=== PATIENT | male | born 1950 | race African-American/Black ===

== ENCOUNTER → 2017-05-28 | Outpatient (CLI) | payer OTHER, BC ==
[~2017-05-28] MED LIST: ACTOS 45 MG45 M1 PO; ALLOPURINOL 30300 M1 PO; ASPIRIN EC81 M1 PO; CARVEDILOL25 MG PO; CIPROFLOXACIN500 M1 PO; GLIPIZIDE ER10 MG PO; GLUCOPHAGE1000 MG PO; JANUVIA100 MG PO; LANSOPRAZOLE30 MG PO; LISINOPRIL20 MG PO; PIOGLITAZONE15 MG PO; SIMVASTATIN80 MG PO
--- NOTE | ~2017-05-28 | 2DMMODE ---
[facility] [place] [address] 2 D/M-MODE ECHOCARDIOGRAM Name: HAMMAD SALGADO Room #: REG [facility]#: [id number] Admission: 05/28/17 Attend Phys: Angel Liao MD Discharge: Date of : 52 Date of Service: 05/28/17 1102 Report #: [id number] THIS REPORT FOR: //name// APPROVED REPORT Study performed: 05/28/2017 10:02:49 EXAM: Comprehensive 2D, Doppler, and color-flow Echocardiogram Patient Location: Echo lab Status: routine BSA: 2.13 BP: 135/96 mmHg Other Information Study Quality: Good Indications Pacemaker Cardiomyopathy 2D Dimensions RVDd: 29.56 mm LVEF(%): 14.53 (>50%) IVSd: 10.52 (7-11mm) LVOT Diam: 20.88 (18-24mm) LVDd: 60.61 mm PWd: 11.81 (7-11mm) Ascending Ao: 29.54 (22-36mm) LVDs: 56.59 (25-40mm) Aortic Root: 27.39 mm IVC: 19.00 mm Conteh's LVEF: 14.53 % Volumes Left Atrial Volume (Systole) Single Plane 4CH: 37.51 mL Single Plane 2CH: 40.94 mL LA ESV Index: 20.00 mL/m2 Aortic Valve AoV Peak Ian.: 1.62 m/s AO Peak Gr.: 10.54 mmHg Mitral Valve E/A Ratio: 0.3 MV Decel. Time: 228.99 ms MV E Max Ian.: 0.33 m/s MV A Ian.: 0.95 m/s [facility] [address] [address] 2 D/M-MODE ECHOCARDIOGRAM Name: HAMMAD SALGADO Jorge Room #: [facility]#: [id number] Admission: 05/28/17 Attend Phys: Angel Liao MD Discharge: Date of : 52 Date of Service: 05/28/17 1102 Report #: [id number] MV PHT: 66.41 ms IVRT: 217.99 ms Pulmonary Valve PV Peak Ian.: 0.86 m/s PV Peak Gr.: 2.94 mmHg Pulmonary Vein P Vein S: 0.29 m/s P Vein A: 0.21 m/s P Vein D: 0.60 m/s P Vein A Dur.: 107.3 msec P Vein S/D Ratio: 0.48 Tricuspid Valve RAP Estimate: 5.00 mmHg Left Ventricle Left ventricle is mildly dilated. There is normal left ventricular wall thickness. Left ventricular systolic function is severely reduced. LVEF is 25-30%. Grade I - abnormal relaxation pattern. Right Ventricle The right ventricle is normal size. The right ventricular systolic function is normal. Atria The left atrium size is normal. The right atrium size is normal. Aortic Valve The aortic valve is normal in structure. Trace aortic regurgitation. There is no aortic valvular stenosis. Mitral Valve Mild mitral annular calcification. There is no mitral valve regurgitation noted. No evidence of mitral valve stenosis. Tricuspid Valve The tricuspid valve is normal in structure. There is no tricuspid valve regurgitation noted. Unable to assess PA pressure. Pulmonic Valve The pulmonary valve is normal in structure. Trace to mild pulmonic regurgitation. Great Vessels The aortic root is normal in size. IVC is normal in size and [facility] [address] [place] [address] 2 D/M-MODE ECHOCARDIOGRAM Name: DAMIANHAMMAD Patel Room #: REG [facility].#: [id number] Admission: 05/28/17 Attend Phys: Angel Liao MD Discharge: Date of : 52 Date of Service: 05/28/172 Report #: [id number] collapses >50% with inspiration. <Conclusion> Left ventricle is mildly dilated. Left ventricular systolic function is severely reduced. The right ventricle is normal size. The left atrium size is normal. Trace aortic regurgitation. Mild mitral annular calcification. The tricuspid valve is normal in structure. <ELECTRONICALLY SIGNED> By: Angel Liao MD 05/28/172 01 1102 Angel Liao MD /AP
== END ==
LOC: CV 09:56
DX: I42.9 Cardiomyopathy, unspecified (principal)

== ENCOUNTER → 2018-08-19 | Outpatient (CLI) | payer OTHER, BC ==
[~2018-08-19] MED LIST changes: +CENTRUM SILVER1 EAC4 PO; +JANUMET 50-1,01 EACH PO; +MINOCIN50 MG PO; +SIMVASTATIN40 MG PO
== END ==
LOC: NUC 08:00
DX: I42.9 Cardiomyopathy, unspecified (principal); I11.0 Hypertensive heart disease with heart failure; I50.9 Heart failure, unspecified; E11.9 Type 2 diabetes mellitus without complications; E78.5 Hyperlipidemia, unspecified

== ENCOUNTER 2018-10-08 05:32 | Inpatient (IN) | payer OTHER, BC ==
[~2018-10-08] VITALS: Ht 180.3 cm; Wt 83.1 kg
[2018-10-08] VITALS (9 sets, daily range): BP systolic 120–174; BP diastolic 78–117
[~2018-10-08 05:32] MED LIST changes: +GLIPIZIDE 10 MG10 MG PO; -GLIPIZIDE ER10 MG PO
[2018-10-08 05:49] LABS: ABSOLUTE NEUTROPHILS 7.6 thou/uL (1.4-8.2); BASOPHILS 1.5 % (0.0-2.0); EOSINOPHILS 4.1 % (0.0-3.0); HEMATOCRIT 42.1 % (42.0-52.0); HEMOGLOBIN 13.9 gm/dL (14.0-18.0); LYMPHOCYTES 22.6 % (24.0-44.0); MCH 30.2 pg (26.0-34.0); MCHC 33.1 g/dL (28.0-37.0); MCV 91.3 fL (80.0-100.0); MONOCYTES 7.4 % (1.0-8.0); PLATELET COUNT 216 thou/uL (150-400); POLYS 64.4 % (36.0-66.0); RBC 4.61 mil/uL (4.50-6.00); RDW 15.5 % (10.5-14.5); WBC 11.7 thou/uL (4.0-11.0)
[2018-10-08 05:55] LABS: ANION GAP 13 mmol/L (7-16); BUN 12 mg/dL (7-18); CALCIUM 8.7 mg/dL (8.5-10.1); CHLORIDE 106 mmol/L (98-107); CO2 23 mmol/L (21-32); CREATININE 1.2 mg/dL (0.7-1.3); GLUCOSE 232 mg/dL (74-106); POTASSIUM 3.8 mmol/L (3.5-5.1); SODIUM 142 mmol/L (136-145)
[2018-10-08 06:02] LABS: APTT 30.6 Seconds (24.5-32.8); PROTIME 10.3 Seconds (9.3-11.4)
[2018-10-08 06:04] LABS: ALBUMIN 3.6 g/dL (3.4-5.0); MAGNESIUM 1.4 mg/dL (1.8-2.4); SGOT 33 U/L (15-37); SGPT 25 U/L (30-65); TOTAL BILIRUBIN 0.5 mg/dL (<0.1-1.0); TOTAL PROTEIN 7.6 g/dL (6.4-8.2); TROPONIN-I <0.06 ng/mL (<0.06)
[2018-10-08] MEDS ORDERED: LASIX 40 MG TAB40 M2 PO (09:36)
[2018-10-08] MEDS ORDERED: POTASSIUM20 PO (09:36)
--- NOTE | 2018-10-08 10:36 | 2DMMODE ---
[address] [address] 2 D/M-MODE ECHOCARDIOGRAM Name: HAMMAD SALGADO Room #: 217-P ADM IN M.R.#: [id number] Admission: 10/08/18 Attend Phys: Manav Griggs MD Discharge: Date of : 52 Date of Service: 10/08/18 1036 Report #: [id number] THIS REPORT FOR: //name// APPROVED REPORT Study performed: 10/08/2018 09:55:52 EXAM: Comprehensive 2D, Doppler, and color-flow Echocardiogram Patient Location: Bedside Room #: 217 Status: routine BSA: 2.11 HR: 82 bpm BP: 134/91 mmHg Rhythm: ICD Other Information Study Quality: Good Indications ICD: Congestive Heart Failure Diabetes Dyspnea Cardiomyopathy Hypertension/HDD Left Ventricle Left ventricle is dilated. There is severe global hypokinesis of the left ventricle. There is normal left ventricular wall thickness. Left ventricular ejection fraction is severely decreased. LVEF is 20-25%. Right Ventricle The right ventricle is normal size. The right ventricular systolic function is normal. Device lead is present in the right ventricle. Atria Left atrium is dilated. Right atrium is at the upper limits of normal. Device lead is present in the right atrium. Aortic Valve The aortic valve is normal in structure. No aortic regurgitation is present. [address] [place] [address] 2 D/M-MODE ECHOCARDIOGRAM Name: HAMMAD SALGADO Room #: 217-P ADM IN M.R.#: [id number] Admission: 10/08/18 Attend Phys: Manav Griggs MD Discharge: Date of : 52 Date of Service: 10/08/18 103 Report #: [id number] Mitral Valve The mitral valve is normal in structure. Mild mitral regurgitation. Tricuspid Valve The tricuspid valve is normal in structure. Trace to mild tricuspid regurgitation. Pulmonic Valve The pulmonary valve is normal in structure. Great Vessels The aortic root is normal in size. IVC is normal in size and collapses >50% with inspiration. Pericardium There is no pericardial effusion. <Conclusion> Left ventricle is dilated. LVEF is 20-25%. The right ventricle is normal size. The right ventricular systolic function is normal. Device lead is present in the right ventricle. Left atrium is dilated. Right atrium is at the upper limits of normal. Device lead is present in the right atrium. The aortic valve is normal in structure. The mitral valve is normal in structure. Mild mitral regurgitation. The tricuspid valve is normal in structure. Trace to mild tricuspid regurgitation. The pulmonary valve is normal in structure. There is no pericardial effusion. <ELECTRONICALLY SIGNED> By: Salo Wood MD 10/08/18 1036 1036 Salo Wood MD /INF
--- NOTE | 2018-10-08 15:14 | EKG ---
[address] [address] ELECTROCARDIOGRAM REPORT Name: HAMMAD SALGADO Room #: 217-P ADM IN M.R.#: [id number] Admission: 10/08/18 Attend Phys: Manav Griggs MD Discharge: Date of : 52 Report #: [id number] THIS REPORT FOR: //name// [facility] ED Test Date: 2018-10-08 Test Time: 05:53:32 Pat Name: HAMMAD SALGADO Department: Room: 217 Gender: M Emergency Department Coordinator: TK : 1950 Requested By: Samy Pimentel Order Number: [id number] MD: Jose Olsen Measurements Intervals [place] Rate: 110 P: 41 RI: 148 QRS: -26 QRSD: 109 T: 105 QT: 365 QTc: 494 Interpretive Statements Sinus tachycardia Probable left atrial enlargement Left ventricular hypertrophy Nonspecific T abnormalities, lateral leads Artifact in lead(s) I,II,aVR,V4,V5 and baseline wander in lead(s) II,III,aVR,aVF,V4,V5,V6 Compared to ECG 12/16/2005 07:07:31 Electronically Signed On 10-08-2018 15:14:31 [employer] by Jose Olsen [email or web address] <ELECTRONICALLY SIGNED> By: Jose Olsen MD 10/08/18 1514 0553 [id number] Jose Olsen MD /EPI
[2018-10-09 04:41] VITALS: BP 120/85
[2018-10-09 05:15] LABS: ABSOLUTE NEUTROPHILS 4.9 thou/uL (1.4-8.2); BASOPHILS 1.8 % (0.0-2.0); EOSINOPHILS 2.8 % (0.0-3.0); HEMATOCRIT 42.3 % (42.0-52.0); LYMPHOCYTES 15.9 % (24.0-44.0); MCV 90.9 fL (80.0-100.0); MONOCYTES 9.9 % (1.0-8.0); PLATELET COUNT 144 thou/uL (150-400); POLYS 69.6 % (36.0-66.0); RBC 4.66 mil/uL (4.50-6.00); RDW 15.2 % (10.5-14.5)
[2018-10-09 05:23] LABS: CALCIUM 8.6 mg/dL (8.5-10.1); CREATININE 1.3 mg/dL (0.7-1.3); MAGNESIUM 1.2 mg/dL (1.8-2.4); POTASSIUM 3.5 mmol/L (3.5-5.1)
[2018-10-09 07:55] VITALS: BP 134/95
[2018-10-09] MEDS ORDERED: K-DUR 20 MEQ T20 MEQ PO (10:26)
[2018-10-09] MEDS ORDERED: MUCINEX600 MG PO (10:26)
[2018-10-09] MEDS ORDERED: LEVAQUIN 500 M500 M1 PO (10:26)
[2018-10-09] MEDS ORDERED: MAGNESIUM400 MG PO (10:26)
[2018-10-09] MEDS ORDERED: LASIX 40 MG TAB40 M1 PO (10:26)
[2018-10-09] MEDS ORDERED: ACCUPRIL40 MG PO (10:26)
[2018-10-09 11:45] VITALS: BP 124/90
[2018-10-09 12:20] VITALS: BP 124/90
== END 2018-10-09 14:31 | disposition home or self-care (01) | DRG 871 ==
LOC: ER 05:32 → 2N 06:26 → EROBS 06:26 → 2N 06:58
PROVIDERS: Emergency Medicine; Nurse Practitioner; ADMIT Internal Medicine
DX: A41.9 Sepsis, unspecified organism (principal); J96.01 Acute respiratory failure with hypoxia; J18.9 Pneumonia, unspecified organism; I50.23 Acute on chronic systolic (congestive) heart failure; J81.1 Chronic pulmonary edema; I42.8 Other cardiomyopathies; I11.0 Hypertensive heart disease with heart failure; E11.9 Type 2 diabetes mellitus without complications; E78.5 Hyperlipidemia, unspecified; E11.51 Type 2 diabetes mellitus with diabetic peripheral angiopathy without gangrene; M10.9 Gout, unspecified; Z88.0 Allergy status to penicillin; Z87.891 Personal history of nicotine dependence; Z95.828 Presence of other vascular implants and grafts; Z79.82 Long term (current) use of aspirin; Z79.899 Other long term (current) drug therapy
CPT/HCPCS: 10081

== ENCOUNTER 2019-06-20 20:45 | Emergency (ER) | payer OTHER, BC ==
[~2019-06-20 20:45] MED LIST changes: +ACCUPRIL40 MG PO; +K-DUR 20 MEQ T20 MEQ PO; +LASIX 40 MG TAB40 M1 PO; +LASIX 40 MG TAB40 M2 PO; +LEVAQUIN 500 M500 M1 PO; +MAGNESIUM400 MG PO; +MUCINEX600 MG PO; +POTASSIUM20 PO
== END 2019-06-21 00:22 ==
LOC: ER 20:45
DX: I46.9 Cardiac arrest, cause unspecified (principal); I11.0 Hypertensive heart disease with heart failure; I50.9 Heart failure, unspecified; E11.9 Type 2 diabetes mellitus without complications; M10.9 Gout, unspecified; Z88.0 Allergy status to penicillin; Z87.891 Personal history of nicotine dependence